=== PATIENT | male | born 1950 | race Caucasian/White ===

== ENCOUNTER → 2024-01-06 12:51 | Outpatient (REF) | payer OTHER, SELFPAY | LOC: RAD 12:51 | PROVIDERS: ATTENDING PHYSICIAN Internal Medicine; FAMILY PHYSICIAN Family Medicine | DX: E78.00 Pure hypercholesterolemia, unspecified (principal); N52.01 Erectile dysfunction due to arterial insufficiency; R80.9 Proteinuria, unspecified; I10 Essential (primary) hypertension; E34.9 Endocrine disorder, unspecified | CPT/HCPCS: 76770 ==